=== PATIENT | female | born 1930 | race Caucasian/White ===

== ENCOUNTER → 2017-04-17 | Outpatient (CLI) | payer MEDICARE ==
[~2017-04-17] MED LIST: ALENDRONATE SOD70 MG PO; CARDIZEM120 M1 PO; CARDIZEM120 MG PO; DYAZIDE CAP (M1 EACH PO; FLONASE 50 MCG16 GM; LISINOPRIL 5MG T5 MG PO; LOPRESSOR 50 MG50 MG PO; OCUVITE TABLET1 EACH PO; PREDNISONE 5MG.5 MG; SOTALOL 80MG TA80 MG PO; TRIAMTERENE/HCT1 CA1 PO; WARFARIN SODIU2.5 MG PO
== END ==
LOC: LAB 14:19
DX: M10.9 Gout, unspecified (principal)

== ENCOUNTER 2017-07-16 11:31 | Outpatient (CLI) | payer MEDICARE | END 2017-07-16 16:53 | LOC: LAB 11:31 → ACC 11:31 | DX: I48.91 Unspecified atrial fibrillation (principal); Z79.01 Long term (current) use of anticoagulants; Z51.81 Encounter for therapeutic drug level monitoring | CPT/HCPCS: G0463 ==